=== PATIENT | female | born 1935 | race Caucasian/White ===

== ENCOUNTER 2019-06-24 11:05 | Emergency (ER) | payer OTHER ==
[~2019-06-24] VITALS: Ht 149.9 cm; Wt 59.9 kg
[~2019-06-24 11:05] MED LIST: DIOVAN HCT 160-1 TAB; NORVASC5 MG; ZOCOR20 MG
[2019-06-24] MEDS ORDERED: RELAFEN DS1000 MG (11:37)
== END 2019-06-24 14:32 | disposition home or self-care (01) ==
LOC: ER 11:05
DX: R07.89 Other chest pain (principal)

== ENCOUNTER 2022-09-08 16:45 | Inpatient (IN) | payer OTHER ==
[~2022-09-08] VITALS: Ht 170.2 cm; Wt 62.6 kg
[~2022-09-08 16:45] MED LIST changes: +RELAFEN DS1000 MG
== END 2022-09-14 18:04 | disposition home or self-care (01) | DRG 920 ==
LOC: ER 16:45 → MEDJ 20:44 → MEDI 20:44 → MEDJ 20:56
PROVIDERS: ADMIT Specialist; ATTEND Specialist
PROC: 4A12X4Z Monitoring of Cardiac Electrical Activity, External Approach (ICD-10-PCS; 2022-09-09)
PROC: 02HV33Z Insertion of Infusion Device into Superior Vena Cava, Percutaneous Approach (ICD-10-PCS; 2022-09-11)
PROC: B54DZZZ Ultrasonography of Bilateral Lower Extremity Veins (ICD-10-PCS; principal; 2022-09-13)
DX: L76.82 Other postprocedural complications of skin and subcutaneous tissue (principal); L02.612 Cutaneous abscess of left foot; L03.032 Cellulitis of left toe; I16.0 Hypertensive urgency; R60.0 Localized edema; Z20.822 Contact with and (suspected) exposure to COVID-19